=== PATIENT | male | born 1960 | race Two or more races ===

== ENCOUNTER 2019-05-29 15:55 | Inpatient (IN) | payer BC, OTHER ==
[~2019-05-29] VITALS: Ht 172.7 cm; Wt 126.8 kg
[~2019-05-29 15:55] MED LIST: AMLO5TAB4 PO; AMOX1TAB61 PO; ASPI-630 PO; ATOR40TA59 PO; FURO40TA4 PO; LOSA100T14 PO; OMEG1CAP6 PO
--- NOTE | 2019-05-29 16:06 | EKG ---
[address] [address] Test Date: 2019-05-29 Test Time: 15:58:35 Pat Name: ALTON SHUKLA Department: Room: Gender: M Document Management Specialist: : [id number] Requested By: RAJEEV LÓPEZ Order Number: [id number] Reading MD: Matias Man MD Measurements Intervals [place] Rate: 123 P: [place]: QRS: -76 QRSD: 110 T: 19 QT: 320 QTc: 464 Interpretive Statements ATRIAL FIBRILLATION WITH RVR RBBB Electronically Signed On 06-12-2019 12:39:40 CDT by Matias Man MD
[2019-05-29] MEDS ORDERED: ACETAMINOPHEN 500 MG TABLET PO ONE (16:15)
--- NOTE | 2019-05-29 16:15 | PHYS DOC ---
Past History Past Medical History: CVA, Diabetes, Heart Disease, Hypertension, Pancreatitis, Stroke Additional Past Medical Histor: atrial fibrillation (RAJEEV LÓPEZ MD) Past Surgical History: No Surgical History (RAJEEV LÓPEZ MD) Alcohol Use: None Drug Use: None (RAJEEV LÓPEZ MD) Adult General Chief Complaint Chief Complaint: WEAKNESS/GENERALIZED HPI HPI patient is a 59-year-old male who presents to the emergency department for evaluation, Via EMS. The patient states he lives with some friends, and EMS reports that the friends called the ambulance because they did not feel that he was acting right today. This behavior was noticed at about 9 AM this morning when the patient awakened. The patient appears to have an expressive aphasia, possibly related to an old stroke which he has a history of, but the patient states his speech is at his baseline. He denies any pain. He is noted to be fe brile upon arrival. He denies any cough, dysuria, abdominal pain, chest pain, nausea, vomiting, headache, new numbness, or new focal weakness. There are no alleviating or exacerbating factors to his symptoms. (RAJEEV LÓPEZ MD) Review of Systems Review of Systems Constitutional: Denies lethargy or chills [] Eyes: Denies change in visual acuity, redness, or eye pain [] HENT: Denies nasal congestion or sore throat [] Respiratory: Denies cough or shortness of breath [] Cardiovascular: No additional information not addressed in HPI [] GI: Denies abdominal pain, nausea, vomiting, bloody stools or diarrhea [] : Denies dysuria or hematuria [] Musculoskeletal: Denies back pain or joint pain [] Integument: Denies rash or skin lesions [] Neurologic: Denies headache, focal weakness or sensory changes. Generalized weakness and possibly behavioral changes were reported. [] Endocrine: Denies polyuria or polydipsia [] All other systems were reviewed and found to be within normal limits, except as documented in this note. (RAJEEV LÓPEZ MD) Current Medications Current Medications Current Medications Medications (Trade) Dose Ordered Sig/Ratna Start Time Stop Time Status Last Admin Dose Admin Acetaminophen (Tylenol) 1,000 mg 1X ONCE 05/29/19 16:15 05/29/19 16:16 UNV Ceftriaxone Sodium 1 gm/ Sodium Chloride 50 ml @ 100 mls/hr 1X ONCE 05/29/19 16:15 05/29/19 16:44 UNV Sodium Chloride 1,000 ml @ 100 mls/hr Q10H 05/29/19 16:02 05/30/19 02:01 UNV (RAJEEV LÓPEZ MD) Allergies Allergies Allergies Coded Allergies Type Severity Reaction Last Updated Verified No Known Drug Allergies 05/17/16 No (RAJEEV LÓPEZ MD) Physical Exam Physical Exam PHYSICAL EXAM: CONSTITUTIONAL: Well developed, well nourished HEAD: normocephalic, atraumatic EENT: PERRL, EOMI. Conjunctivae normal color, sclerae non-icteric; moist mucous membranes. NECK: Supple, non-tender; no meningismus. LUNGS: Lungs CTA, breathing even and unlabored. Normal air movement. HEART: Regular tachycardia, no murmur CHEST: No deformity; non-tender ABDOMEN: The abdomen is soft, and non-tender, no masses or bruits. EXTREM: Normal ROM; no deformity, no calf tenderness. Normal pulses palpable in all extremities. There is 1+ bilateral pedal edema, along with skin changes of chronic venous stasis, left greater than right legs. SKIN: No rash; no diaphoresis NEURO: Alert; normal cognition. There is some expressive aphasia, all the patient is able to reliably answer questions requiring 2-3 word answers; CN's grossly intact; strength grossly intact without focal deficit. BACK: No CVA TTP. (RAJEEV LÓPEZ MD) Current Patient Data Lab Results Laboratory Tests Test 05/29/19 16:45 White Blood Count 18.3 x10^3/uL Red Blood Count 5.26 x10^6/uL Hemoglobin 15.0 g/dL Hematocrit 46.2 % Mean Corpuscular Volume 88 fL Mean Corpuscular Hemoglobin 29 pg Mean Corpuscular Hemoglobin Concent 33 g/dL Red Cell Distribution Width 15.1 % Platelet Count 280 x10^3/uL Neutrophils (%) (Auto) 89 % Lymphocytes (%) (Auto) 5 % Monocytes (%) (Auto) 5 % Eosinophils (%) (Auto) 0 % Basophils (%) (Auto) 1 % Neutrophils # (Auto) 16.4 x10^3uL Lymphocytes # (Auto) 0.9 x10^3/uL Monocytes # (Auto) 0.9 x10^3/uL Eosinophils # (Auto) 0.0 x10^3/uL Basophils # (Auto) 0.2 x10^3/uL Platelet Estimate Pending Current Medications Medications (Trade) Dose Ordered Sig/Ratna Route PRN Reason Start Time Stop Time Status Last Admin Dose Admin Acetaminophen (Tylenol) 1,000 mg 1X ONCE PO 05/29/19 16:15 05/29/19 16:16 DC 05/29/19 16:57 Ceftriaxone Sodium 1 gm/ Sodium Chloride 50 ml @ 100 mls/hr 1X ONCE IV 05/29/19 16:15 05/29/19 16:44 DC 05/29/19 17:03 Sodium Chloride 1,000 ml @ 100 mls/hr Q10H IV 05/29/19 16:02 05/30/19 02:01 05/29/19 17:02 Sodium Chloride 50 ml @ As Directed STK-MED ONCE .ROUTE 05/29/19 16:55 05/29/19 16:56 DC Ceftriaxone Sodium (Rocephin) 1 gm STK-MED ONCE .ROUTE 05/29/19 16:55 05/29/19 16:56 DC (RAJEEV LÓPEZ MD) EKG EKG Irregular atrial fibrillation at a rate of 123 beats for minute, left axis deviation, right bundle-branch block, without acute ischemic ST/T changes. There are no old EKGs available for comparison.[] (RAJEEV LÓPEZ MD) Radiology/Procedures Radiology/Procedures [PROCEDURE: CT HEAD WO CONTRAST CT head without contrast dated 05/29/2019. No comparison available. Clinical data indication: Altered mental status. TECHNIQUE: Contiguous axial imaging the head was performed from skull base to vertex. No contrast administered. One or more of the following individualized dose reduction techniques were utilized for this examination: 1. Automated exposure control 2. Adjustment of the mA and/or kV according to patient size 3. Use of iterative reconstruction technique. FINDINGS: Ventricles and sulci are mildly prominent for age. No midline shift or mass effect. Mild patchy low density in the deep/subcortical periventricular white matter. No hemorrhage or extra axial collection. Focal zone of encephalomalacia and volume loss in the parasagittal right occipital lobe. There is also some spotty low density in the right cerebellum. Visualized paranasal sinuses are clear. There is partial opacification of the bilateral mastoid air cells. No acute calvarial abnormality. IMPRESSION: 1. No evidence of acute intracranial hemorrhage or mass. 2. Mild chronic small vessel ischemic changes and atrophy. There is a remote cortical infarct of the right occipital lobe. There are also probable small remote lacunar infarcts of the right cerebellum. 3. Partial opacification of the bilateral mastoid air cells, nonspecific.] PROCEDURE: PORTABLE CHEST 1V EXAM: Chest, single view. HISTORY: Fever. COMPARISON: None. FINDINGS: A frontal view of the chest is obtained. There is no infiltrate, pleural effusion or pneumothorax. There is a prominent cardiac silhouette, a component of which is due to portable technique. IMPRESSION: No acute pulmonary finding. (RAJEEV LÓPEZ MD) Course & Med Decision Making Course & Med Decision Making Pertinent Labs and Imaging studies reviewed. (See chart for details) []6:00 PM: Pt condition remains stable. Care was turned over to Dr Hernandez at shift change, pending labs, and final disposition. Report given. Initial chemistry results reported to be hemolyzed. (RAJEEV LÓPEZ MD) Course & Med Decision Making The patient's elevated white blood cell count. His lactic gases normal. Blood cultures have been old. He does have a fever of 101. He was given Tylenol. The patient appears to say lasted the left leg. He was given Rocephin by my colleague prior to turning over to me. The patient meets sepsis criteria with elevated heart rate, fever, altered mental status and likely source of infection. I will additionally given vancomycin and his 30 mL/kg of fluids for ideal body weight. We are using ideal body weight because the patient is rather obese and he has a pro BNP of 5700 indicating some fluid overload. His creatinine is 2.8. This appears to be similar to his baseline. I'm giving 40 mg Lasix IV for his fluid overload. I discussed the patient with Dr. Cornell and he has accepted the patient for admission. He was admitted to the ICU. He recommended that we hold the Lasix. I have canceled that order. The patient is in agreement with admission. Due to staffing issues of possible, the patient will be held in the emergency room until he can be admitted to the ICU. 43 minutes of critical care time was spent on this patient exclusive of other billable procedures. (ROSA HERNANDEZ DO) Dragon Disclaimer Dragon Disclaimer This electronic medical record was generated, in whole or in part, using a voice recognition dictation system. (RAJEEV LÓPEZ MD) Date and Time of Assessment Date: May 29, 2019 Time: 18:20 (ROSA HERNANDEZ DO) Respirations Respiratory Effort: Normal Respiratory Pattern: Normal (ROSA HERNANDEZ DO) Cardiovascular Pulse Rhythm: Regular HEART: No murmurs noted (ROSA HERNANDEZ DO) Lung Sounds Breath Sounds: Clear (ROSA HERNANDEZ DO) Capillary Refill Capillary Refill: Rt Hand < 3 seconds (ROSA HERNANDEZ DO) Peripheral Pulse Pulse Location: Monitor Pulse Strength: Normal (2+) Pulse Assessment Method: Monitor (ROSA HERNANDEZ DO) Integumentary Skin: Warm Skin Moisture: Dry Skin Turgor: Normal Skin Color: erythema Fingernail Color: WNL (ROSA HERNANDEZ DO) Fluid Challenge: Is the fluid challenge complet: No IBW Target Volume Used: No BMI > 30: Yes Blood Culture TIme: 16:45 Time Antibiotics Given: 17:00 (ROSA HERNANDEZ DO) Departure Departure: Impression: Primary Impression: Fever Additional Impressions: Altered mental status Cellulitis of left lower extremity Sepsis Disposition: ADMITTED INPATIENT Admitting Physician: Mike Cornell (RAJEEV LÓPEZ MD) Admitting Physician: Mike Cornell (ROSA HERNANDEZ DO) Condition: GUARDED Referrals: JOO GALLARDO MD (PCP) Problem Qualifiers Primary Impression: Fever Fever type: due to other condition Qualified Codes: R50.81 - Fever presenting with conditions classified elsewhere Additional Impressions: Altered mental status Altered mental status type: disorientation Qualified Codes: R41.0 - Disorientation, unspecified Sepsis Sepsis type: Streptococcus, unspecified Sepsis acute organ dysfunction status: without acute organ dysfunction Qualified Codes: A40.9 - Streptococcal sepsis, unspecified RAJEEV LÓPEZ MD May 29, 2019 16:15 ROSA HERNANDEZ DO May 29, 2019 19:20
--- NOTE | 2019-05-29 16:36 | RAD ---
EXAM: Chest, single view. HISTORY: Fever. COMPARISON: None. FINDINGS: A frontal view of the chest is obtained. There is no infiltrate, pleural effusion or pneumothorax. There is a prominent cardiac silhouette, a component of which is due to portable technique. IMPRESSION: No acute pulmonary finding. Electronically signed by: Rose Marie Britt MD (05/29/2019 4:33 PM) [facility]
--- NOTE | 2019-05-29 16:39 | RAD ---
CT head without contrast dated 05/29/2019. No comparison available. Clinical data indication: Altered mental status. TECHNIQUE: Contiguous axial imaging the head was performed from skull base to vertex. No contrast administered. One or more of the following individualized dose reduction techniques were utilized for this examination: 1. Automated exposure control 2. Adjustment of the mA and/or kV according to patient size 3. Use of iterative reconstruction technique. FINDINGS: Ventricles and sulci are mildly prominent for age. No midline shift or mass effect. Mild patchy low density in the deep/subcortical periventricular white matter. No hemorrhage or extra axial collection. Focal zone of encephalomalacia and volume loss in the parasagittal right occipital lobe. There is also some spotty low density in the right cerebellum. Visualized paranasal sinuses are clear. There is partial opacification of the bilateral mastoid air cells. No acute calvarial abnormality. IMPRESSION: 1. No evidence of acute intracranial hemorrhage or mass. 2. Mild chronic small vessel ischemic changes and atrophy. There is a remote cortical infarct of the right occipital lobe. There are also probable small remote lacunar infarcts of the right cerebellum. 3. Partial opacification of the bilateral mastoid air cells, nonspecific. Electronically signed by: Dayne Cohen MD (05/29/2019 4:36 PM) [facility]
[2019-05-29] MEDS ORDERED: IV NORMAL SALINE 50ML 50 ML ONE (16:55)
[2019-05-29] MEDS ORDERED: cefTRIAXone SODIUM 1 GM VIAL ONE (16:55)
[2019-05-29] MEDS: IV NORMAL SALINE 1,000ML 1,000 ML IV SCH ×2 (17:02→20:57)
[2019-05-29 17:35] LABS: BASO # 0.2 x10^3/uL (0.0-0.2); BASO % 1 % (0-3); EOS % 0 % (0-3); HEMATOCRIT 46.2 % (39.0-53.0); LYMPH # 0.9 x10^3/uL (1.0-4.8); LYMPH % 5 % (24-48); MEAN CORPUSCULAR HEMOGLOBIN 29 pg (25-35); MEAN CORPUSCULAR HGB CONC 33 g/dL (31-37); MEAN CORPUSCULAR VOLUME 88 fL (79-100); MONO # 0.9 x10^3/uL (0.0-1.1); MONO % 5 % (0-9); NEUT # 16.4 x10^3uL (1.8-7.7); NEUT % 89 % (31-73); PLATELET COUNT 280 x10^3/uL (140-400); RED BLOOD COUNT 5.26 x10^6/uL (4.30-5.70); RED CELL DISTRIBUTION WIDTH 15.1 % (11.5-14.5); WHITE BLOOD COUNT 18.3 x10^3/uL (4.0-11.0)
[2019-05-29 18:15] LABS: BILIRUBIN,URINE NEG (NEG); CLARITY,URINE HAZY; COLOR,URINE YELLOW; GLUCOSE,URINE 100 mg/dL (NEG)
[2019-05-29 18:16] LABS: BACTERIA,URINE 0 /HPF (0-FEW); HYALINE CASTS, URINE FEW /HPF; NITRITE,URINE NEG (NEG); SQUAMOUS EPITHELIAL CELL,UR MOD /LPF; UROBILINOGEN,URINE 0.2 mg/dL (0.2 mg/dL)
[2019-05-29 18:38] LABS: ALBUMIN 3.3 g/dL (3.4-5.0); ALBUMIN/GLOBULIN RATIO 0.8 (1.0-1.7); CALCIUM 8.1 mg/dL (8.5-10.1); CREATININE 2.8 mg/dL (0.7-1.3); GFR 23.3; MAGNESIUM 1.7 mg/dL (1.8-2.4); POTASSIUM 4.5 mmol/L (3.5-5.1); TOTAL BILIRUBIN 0.6 mg/dL (0.2-1.0); TOTAL PROTEIN 7.6 g/dL (6.4-8.2)
[2019-05-29 19:10] LABS: % BANDS 4 % (0-9); % LYMPHS 4 % (24-48); % MONOS 2 % (0-10); % SEGS 90 % (35-66)
[2019-05-29 19:11] LABS: PLT ESTIMATE ADEQUATE (ADEQUATE)
[2019-05-29] MEDS ORDERED: IV NORMAL SALINE 1,000ML 2,190 ML IV SCH (19:15)
[2019-05-29] MEDS ORDERED: VANCOMYCIN 2 GM in IV NORMAL SALINE 500ML 500 ML IV ONE (19:30)
[2019-05-29] MEDS ORDERED: FUROSEMIDE 40 MG/4 ML VIAL IVP ONE (19:30)
[2019-05-29 23:41] LABS: BGAS PH 7.37 (7.35-7.46)
[2019-05-30] MEDS ORDERED: WARFARIN 5 MG TABLET. PO ONE
[2019-05-30] MEDS ORDERED: CARVEDILOL 12.5 MG TABLET PO ONE (00:15)
[2019-05-30 07:51] VITALS: BP 135/97
[2019-05-30 08:26] LABS: BASO # 0.1 x10^3/uL (0.0-0.2); BASO % 1 % (0-3); EOS % 0 % (0-3); HEMATOCRIT 39.8 % (39.0-53.0); HEMOGLOBIN 12.9 g/dL (13.0-17.5); LYMPH % 9 % (24-48); MEAN CORPUSCULAR HEMOGLOBIN 28 pg (25-35); MEAN CORPUSCULAR HGB CONC 32 g/dL (31-37); MEAN CORPUSCULAR VOLUME 88 fL (79-100); MONO # 0.7 x10^3/uL (0.0-1.1); MONO % 7 % (0-9); NEUT # 9.5 x10^3uL (1.8-7.7); NEUT % 84 % (31-73); PLATELET COUNT 222 x10^3/uL (140-400); RED BLOOD COUNT 4.54 x10^6/uL (4.30-5.70); RED CELL DISTRIBUTION WIDTH 14.8 % (11.5-14.5); WHITE BLOOD COUNT 11.4 x10^3/uL (4.0-11.0)
[2019-05-30] MEDS ORDERED: ERGO500027 PO (08:43)
[2019-05-30] MEDS ORDERED: EZET10TA20 PO (08:43)
[2019-05-30] MEDS ORDERED: CARV25TA2 PO (08:43)
[2019-05-30 08:44] LABS: ALBUMIN 2.7 g/dL (3.4-5.0); ALBUMIN/GLOBULIN RATIO 0.7 (1.0-1.7); CALCIUM 7.6 mg/dL (8.5-10.1); CREATININE 2.6 mg/dL (0.7-1.3); GFR 25.4; MAGNESIUM 1.7 mg/dL (1.8-2.4); POTASSIUM 4.5 mmol/L (3.5-5.1); TOTAL BILIRUBIN 0.7 mg/dL (0.2-1.0); TOTAL PROTEIN 6.8 g/dL (6.4-8.2)
[2019-05-30] MEDS ORDERED: MAGNESIUM SULFATE 2GM 50 ML IV ONE (09:00)
[2019-05-30] MEDS: LISINOPRIL 10 MG TABLET PO SCH (09:00)
[2019-05-30] MEDS: NON FORMULARY ITEM (Liraglutide (Victoza 3-Pak) 1.2 MG) SQ SCH (09:00)
[2019-05-30] MEDS ORDERED: WARF-31 PO (09:05)
[2019-05-30] MEDS ORDERED: WARF2.5T71 PO (09:05)
[2019-05-30] MEDS ORDERED: MAGN400T5 PO (09:05)
[2019-05-30] MEDS ORDERED: LIRA0.6P2 SQ (09:05)
[2019-05-30] MEDS ORDERED: GLIP5TAB10 PO (09:05)
[2019-05-30] MEDS ORDERED: LISI10TA2 PO (09:05)
[2019-05-30 09:28] VITALS: BP 143/78
[2019-05-30 10:03] VITALS: BP 143/78
[2019-05-30] MEDS: MAGNESIUM OXIDE 400 MG TABLET PO SCH ×2 (10:04→21:11)
[2019-05-30] MEDS: OMEGA-3 FATTY ACIDS/FISH OIL 1,000 MG CAPSULE. PO SCH (10:04)
[2019-05-30] MEDS: glipiZIDE 5 MG TABLET PO SCH ×2 (10:04→21:11)
[2019-05-30] MEDS ORDERED: DEXTROSE 50% 25 GM / 50ML DISP.SYRIN. IV PRN (10:15)
[2019-05-30] MEDS: INSULIN LISPRO 300 UNITS/3 ML VIAL. SQ SCH ×2 (11:53→16:34)
[2019-05-30] MEDS: ACETAMINOPHEN 500 MG TABLET PO PRN ×2 (12:26→23:26)
[2019-05-30 15:09] VITALS: BP 111/65
[2019-05-30] MEDS ORDERED: WARFARIN 6 MG TABLET. PO ONE (16:00)
[2019-05-30 16:18] VITALS: BP 126/77
[2019-05-30] MEDS: CARVEDILOL 12.5 MG TABLET PO SCH (17:27)
[2019-05-30] MEDS ORDERED: VANCOMYCIN PER PHARMACY MC PRN (17:45)
[2019-05-30] MEDS ORDERED: VANCOMYCIN 2 GM in IV NORMAL SALINE 500ML 500 ML IV ONE (18:30)
[2019-05-30 18:32] VITALS: BP 133/78
[2019-05-30] MEDS ORDERED: VANCOMYCIN 2 GM in IV NORMAL SALINE 500ML 500 ML IV SCH ×2 (19:15→20:00)
[2019-05-30] MEDS: LACTOBACILLUS RHAMNOSUS GG 1 CAPSULE. PO SCH (21:11)
[2019-05-31 00:01] VITALS: BP 144/82
--- NOTE | 2019-05-31 02:59 | HP ---
ADMIT DATE: 05/30/2019 SUBJECTIVE: The patient is a 59-year-old male patient who came to the Emergency Room complaining of generalized weakness. He was brought to the Emergency Department for evaluation by EMS. The patient states that he lives with some friends, and reportedly, the friends called the ambulance because they did not feel that he was acting right today. This behavior was noticed at about 9:00 a.m. this morning when the patient awakened. He appears to have an expressive aphasia, possibly related to an old stroke which he has a history of, but the patient stated his speech is at baseline. He denied any pain. He is noted to be febrile upon arrival. He denies any cough, dysuria, abdominal pain, chest pain. He was apparently extensively investigated in the Emergency Room and has had lab work done, showed that he has leukocytosis with a white cell count of 13,000. His blood gases showed that he has hypoxic respiratory failure. Urinalysis was unremarkable. His chemistry showed that he has elevated BUN and creatinine. He apparently was given IV fluid and was started on IV vancomycin and ceftriaxone for left lower extremity cellulitis. PAST MEDICAL HISTORY: Significant for hypertension, hyperlipidemia, chronic kidney disease, type 2 diabetes mellitus, multiple cerebrovascular accident. Has also what seemed to be benign prostatic hypertrophy, chronic venous stasis and gout. PAST SURGICAL HISTORY: Significant for hernia repair. ALLERGIES: He has no known drug allergies. FAMILY HISTORY: He has 3 sisters, the older one has of end-stage renal failure in her 60s. He has 2 other sisters, one younger and older and seemingly healthy. His father in his 70s because of CVA and mother in her 70s. SOCIAL HISTORY: He is , has 2 daughters. He currently lives with 2 friends. He is an ex-smoker, quit 4 years ago, used to smoke a pack a day and smoked for almost 30 years, used to be also a heavy alcohol drinker, described himself as functional alcoholic, quit also about 4 years ago after he had first TIA. He does not use any drugs. He used to work for [email or web address]. He was discharged from the [employer] after 6 years of service. REVIEW OF SYSTEMS: The patient denied any blurring of vision, cataract, glaucoma or macular degeneration. Denied any earache, tinnitus or sensorineural deafness. Denied any nosebleeds, stuffy nose or postnasal drip. Denied any sore throat, sore tongue, toothache, hoarseness of voice or difficulty swallowing. Denied any nausea, vomiting, diarrhea or constipation. Denied any hematemesis, melena or hematochezia. Denied any dysuria, frequency or hematuria. Denied any chest pain, shortness of breath, orthopnea or paroxysmal nocturnal dyspnea. Denied any cough, phlegm or hemoptysis. Denied any dizziness, lightheadedness. Denied any chills, rigors or fever, although he realized his temperature was high at 100.1. PHYSICAL EXAMINATION: GENERAL: On arrival to the Emergency Room, he was somewhat pale. No jaundice, cyanosis or thyromegaly. No jugular venous distention. No limb edema. VITAL SIGNS: His heart rate was 115, blood pressure was 161/91, temperature was 98.9, respiratory rate was 22 and oxygen saturation was 94%. HEAD, EYES, EARS, NOSE AND THROAT: Normocephalic, atraumatic. NECK: Supple. HEART: Showed normal first and second heart sounds. No gallop, rub or murmur. CHEST: Clear to auscultation. No crepitation or rhonchi. ABDOMEN: Distended, soft, nontender. No guarding or rigidity. No organomegaly. All hernial orifice intact. Bowel sounds normal. NEUROLOGIC: He was awake, alert, responding appropriately. All cranial nerves are intact. He moves extremities without difficulty. At least when he was seen here in the hospital, he was able to ambulate without any assistance or assistive devices. LABORATORY DATA: His lab work on arrival this morning showed a serum sodium 138, potassium 4.5, chloride 106, bicarbonate 22, anion gap of 10, BUN 39, creatinine 2.8, estimated GFR was 23 mL per minute, his glucose 152, calcium was 8.1, magnesium 1.7. Total bilirubin, AST, ALT, alkaline phosphatase were normal. Beta natriuretic peptide was 5917, total protein was 7.6, albumin 3.3. His white cell count was 18,300, hemoglobin 15, hematocrit 46, MCV 88 and platelet count of 208,000. His arterial blood gases showed a pH of 7.37, pCO2 of 32, pO2 of 75, bicarbonate 19 and oxygen saturation was 95% on FiO2 of 21%. His prothrombin time was 22 with INR of 2.1, aPTT was 35. Urinalysis showed the urine was yellow, hazy with a pH of 5.5, specific gravity of 1.020 and the urine showed more than 100 mg/dL protein. There was large amount of glucose. The urine was negative for ketones, moderate amount of blood, negative for nitrite, negative for leukocyte esterase. There were 6-10 rbc's, 1-4 wbc's and no bacteria. His chest x-ray showed there is a prominent cardiac silhouette, component of which is due to portable technique. There is no infiltrate, pleural effusion or pneumothorax. His CT scan of the head showed that there is no evidence of acute intracranial hemorrhage or mass effect. There are mild chronic small vessel ischemic changes and atrophy. There is a remote cortical infarct of the right occipital lobe. There is also probable remote lacunar infarct in the right cerebellum. There is partial opacification of bilateral mastoid air cells, nonspecific. He was admitted after receiving IV fluid and vancomycin as well as ceftriaxone. He is currently on Coumadin 5 mg on Mondays and 2.5 mg in the rest of the week. He is on Zetia 10 mg daily, atorvastatin calcium 20 mg once a day, omega-3 fatty acid 1000 mg daily, carvedilol 12.5 mg twice a day with meals, lisinopril 10 mg once a day, furosemide 40 mg once a day, magnesium oxide 400 mg twice a day, Victoza 1.2 mg subQ daily, glipizide 7.5 mg twice a day, ergocalciferol, vitamin D 50,000 International Units once a week. We will continue with all his medications, vancomycin and ceftriaxone, and monitor his lab work closely. DAVIDA MAYERS MD DR: LORENZO/tomy JOB#: [id number] / [id number]
[2019-05-31 06:00] VITALS: BP 115/83
[2019-05-31 06:17] LABS: HEMATOCRIT 40.1 % (39.0-53.0); RED BLOOD COUNT 4.51 x10^6/uL (4.30-5.70); RED CELL DISTRIBUTION WIDTH 15.5 % (11.5-14.5); WHITE BLOOD COUNT 9.1 x10^3/uL (4.0-11.0)
[2019-05-31 06:33] LABS: ALBUMIN 2.7 g/dL (3.4-5.0); ALBUMIN/GLOBULIN RATIO 0.6 (1.0-1.7); CREATININE 2.8 mg/dL (0.7-1.3); GFR 23.3; POTASSIUM 4.5 mmol/L (3.5-5.1); TOTAL BILIRUBIN 0.4 mg/dL (0.2-1.0); TOTAL PROTEIN 6.9 g/dL (6.4-8.2)
[2019-05-31] MEDS: INSULIN LISPRO 300 UNITS/3 ML VIAL. SQ SCH ×3 (07:29→16:47)
[2019-05-31] MEDS: MAGNESIUM OXIDE 400 MG TABLET PO SCH (08:13)
[2019-05-31] MEDS: OMEGA-3 FATTY ACIDS/FISH OIL 1,000 MG CAPSULE. PO SCH (08:13)
[2019-05-31] MEDS: LACTOBACILLUS RHAMNOSUS GG 1 CAPSULE. PO SCH (08:13)
[2019-05-31] MEDS: LISINOPRIL 10 MG TABLET PO SCH (08:14)
[2019-05-31] MEDS: glipiZIDE 5 MG TABLET PO SCH (08:14)
[2019-05-31] MEDS: CARVEDILOL 12.5 MG TABLET PO SCH ×2 (08:15→16:37)
[2019-05-31] MEDS: NON FORMULARY ITEM (Liraglutide (Victoza 3-Pak) 1.2 MG) SQ SCH (08:18)
[2019-05-31] MEDS ORDERED: FLU VAX QS 2019-20 (36MOS+)/PF 0.5 ML SYRINGE. VAX IM ONE (09:00)
[2019-05-31] MEDS ORDERED: MINERAL OIL/PETROLATUM TOPICAL CREAM 113GM JAR. TP SCH (10:00)
[2019-05-31 10:27] VITALS: BP 145/81
--- NOTE | 2019-05-31 12:46 | RAD ---
Examination: VENOUS LOWER EXTREMITY LEFT History: Left leg edema. Swelling. COMPARISON/CORRELATION: None FINDINGS: Bilateral lower extremity duplex venous ultrasound exam was performed. Grayscale, color Doppler, and spectral Doppler imaging was performed. Compression and augmentation was performed. The left common femoral vein, superficial femoral vein, popliteal vein, and greater saphenous vein are normal with no evidence of deep venous thrombus. Posterior tibial and peroneal veins are visualized and unremarkable. Normal compressibility and augmentation is evident. IMPRESSION: Normal left lower extremity duplex ultrasound exam. No evidence of deep venous thrombus involving the left lower extremity. Electronically signed by: Jose Doll MD (05/31/2019 12:43 PM) [facility]
[2019-05-31 15:31] VITALS: BP 146/82
[2019-05-31] MEDS ORDERED: CEPH-264 PO (15:43)
[2019-05-31] MEDS ORDERED: CEPHALEXIN 250 MG CAPSULE PO SCH (16:00)
[2019-05-31] MEDS ORDERED: WARFARIN 2.5 MG TABLET. PO ONE (16:00)
[2019-05-31 16:37] VITALS: BP 146/82
--- NOTE | 2019-05-31 17:44 | CONS ---
DATE OF CONSULTATION: 05/30/2019 NEURO CONSULTATION REFERRING PHYSICIAN: Dr. Cornell/Dr. Luevano. REASON FOR CONSULTATION: Mental status changes, rule out stroke versus TIA. HISTORY OF PRESENT ILLNESS: This is a 59-year-old right-handed male who was admitted through Emergency Room after he was found by his friend not acting normally According to the patient upon waking up at 9 o'clock, he was acting strangely for a few minutes. Subsequently, EMS was activated and transferred the patient to Emergency Room for further evaluation. On arrival to Emergency Room, the patient was found alert and oriented, but he has to take long time to answer the questions. It was thought that he might have aphasia; however, it was thought that he might have had expressive aphasia. Currently, the patient denies any headaches, visual disturbances, nausea, vomiting, chest pain, shortness of breath or palpitation, dysphagia or vertigo. He had a stroke in the past resulted in visual field abnormalities. PAST MEDICAL HISTORY: Significant for stroke, hypertension, hyperlipidemia, peripheral vascular disease, coronary artery disease, chronic renal disease, diabetes and atrial fibrillation. SOCIAL HISTORY: The patient is . He is a smoker. He denies alcohol drinking or illicit drug use. FAMILY HISTORY: Noncontributory. CURRENT HOME MEDICATIONS: Tylenol, carvedilol, fish oil, glipizide, insulin Humalog, lisinopril, magnesium, vitamin D, and warfarin. ALLERGIES: No known drug allergies. REVIEW OF SYSTEMS: A 10-point review of system was performed as mentioned above in history of present illness. PHYSICAL EXAMINATION: GENERAL: Obese male, not in acute distress. He weighs 127 kilos. VITAL SIGNS: Blood pressure 135/97, respiratory rate 27, pulse is 88 and regular, oxygen saturation 99% on 3 liters by nasal cannula and temperature is 98.5. HEENT: Normocephalic, atraumatic, otherwise unremarkable. NECK: Supple. Negative for carotid bruit, lymphadenopathy or thyromegaly. LUNGS: Clear to A and P. CARDIOVASCULAR: Regular rhythm, normal S1, S2. ABDOMEN: Soft. Bowel sounds positive. EXTREMITIES: Positive for bilateral venous stasis with possible cellulitis over the left knee and left leg associated with edema. NEUROLOGICAL EXAM: Mental Status: The patient is alert and oriented x 3. Speech is fluent. There is no language dysfunction. The patient recalls 2/3 immediately and after 1 and 3 minutes. Judgment and abstracting thinking are normal. The patient denies hallucination or delusion. CRANIAL NERVES: The pupils are equal and reactive to light and accommodation. The extraocular movements are intact. Visual leal revealed evidence of left homonymous hemianopsia. There is no nystagmus. There is no facial motor or sensory deficit. Hearing is diminished bilaterally. The palate is elevated symmetrically. Sternocleidomastoid muscles are powerful bilaterally. The patient shrugs his shoulders symmetrically, protrudes his tongue in the midline without fasciculation or atrophy. MOTOR: No focal muscle bulk was seen. The tone is normal. The strength is 5/5 throughout. Sensory examination revealed diminished pinprick and light touch senses in patchy distributions in both lower extremities. Deep tendon reflexes were symmetric, but hypoactive with absent Achilles responses. Gait: The gait is normal. LABORATORY DATA: CBC revealed white blood cells of 11.4 thousand from 18.3 thousand at the time of admission. On admission, hemoglobin is 12.9, hematocrit 39.8, platelet count 222,000. Chemistry revealed sodium of 138, potassium 4.5, chloride 107, CO2 of 22, BUN 34, creatinine 2.6, glucose 163 and, calcium 7.6. Magnesium is low at 1.7. Liver enzymes with not elevated. Urinalysis positive for hematuria and negative for urinary tract infections. Coagulation revealed INR 1.7 and PT 17.2. EKG revealed right bundle branch block with atrial fibrillation. IMPRESSION: 1. Acute encephalopathy, resolved, rule out transient ischemic attack. 2. Multiple medical problems include hypertension, hyperlipidemia and diabetes mellitus. 3. Coronary artery disease, atrial fibrillation and peripheral vascular disease with possible cellulitis of the left knee and leg. RECOMMENDATIONS: 1. The patient has been on antibiotics for possible cellulitis. 2. This patient belongs to the [facility] here in [place]. If he is going to stay in the hospital, we need to obtain medical record from [facility]. 3. Physical therapy evaluation. M Brianne BRAGG MD DR: RAVINDER/tomy JOB#: [id number] / [id number]
[2019-05-31] MEDS ORDERED: CEPHALEXIN 250 MG/5 ML ORAL.SUSP. PEG SCH (22:00)
--- NOTE | 2019-06-01 01:37 | DS ---
DATE OF DISCHARGE: 05/31/2019 HOSPITAL COURSE: The patient is a 59-year-old male patient who was admitted with complaint of generalized weakness. He was originally admitted because of possibility of stroke and expressive aphasia and unsteady gait; however, when he arrived to the Emergency Room, he was found to be febrile; however, denied any cough, phlegm, dysuria, abdominal pain, chest pain. He was extensively investigated in the Emergency Room, was found to have marked leukocytosis with a white cell count of more than 18,000. His urinalysis was unremarkable, did have marked elevated BUN and creatinine and clinically was found to have a left lower extremity cellulitis, which he was started on vancomycin and ceftriaxone. The patient did well. He remained afebrile throughout his stay. His white cell count came down nicely from 18,000 to 9000, although he continued to have mild tenderness in his left leg. Venous Doppler ultrasound showed no evidence of deep vein thrombosis and decision was made in collaboration with the [facility] to discharge him home to follow with the [facility] at the [facility]. PHYSICAL EXAMINATION: GENERAL: When I examined him this afternoon, he looked well and was clearly in no apparent respiratory distress. He was pale. No jaundice, cyanosis or thyromegaly. No jugular venous distention or limb edema. VITAL SIGNS: His heart rate was 88, blood pressure was 133/78, temperature was 98.5, respiratory rate 23, and oxygen saturation was 96%. HEAD, EYES, EARS, NOSE AND THROAT: Showed normocephalic, atraumatic. NECK: Supple. HEART: Showed normal first and second heart sounds. No gallop or murmur. CHEST: Clear to auscultation. No crepitation, rhonchi. ABDOMEN: Distended, soft, nontender. NEUROLOGIC: He was awake, alert, responding appropriately. All cranial nerves are intact. He moves extremities without difficulty. The left leg is more swollen than right with some tenderness to palpation noted. The patient denies any pain on movement. There are no areas of fluctuation. His venous Doppler ultrasound was negative for deep vein thrombosis. LABORATORY WORK: This morning showed a white cell count is down to 9000, hemoglobin 13, hematocrit 40, MCV 89 and platelet count 209,000. His chemistry showed a serum sodium 141, potassium 4.5, chloride 109, bicarbonate ____, BUN 37, creatinine 2.8, estimated GFR was 23 mL per minute, his glucose 122, calcium was 8. Total bilirubin, AST, ALT, alkaline phosphatase were normal. Total protein 6.9, albumin 2.7. Urinalysis was unremarkable and his blood cultures were negative. DISCHARGE MEDICATIONS: The patient was discharged home to continue on Keflex 500 mg 3 times a day, atorvastatin calcium 20 mg at bedtime, carvedilol 12.5 mg twice a day, vitamin D2 50,000 International Units once a week, Zetia 10 mg once a day, furosemide 40 mg once a day, glipizide 7.5 mg twice a day, liraglutide for Victoza 1.2 mg subcutaneously daily, lisinopril 10 mg once a day, magnesium oxide 400 mg twice a day, omega-3 fatty acid 1 capsule daily and warfarin 7.5 mg daily. FINAL DISCHARGE DIAGNOSIS: Left lower extremity cellulitis, responding to antibiotic. OTHER MEDICAL PROBLEMS: Include: A. Hypertension. B. Hyperlipidemia. C. Chronic kidney disease. D. Type 2 diabetes mellitus. E. Multiple cerebrovascular accidents. F. Benign prostatic hypertrophy. G. Chronic venous stasis. H. Gout. DAVIDA MAYERS MD DR: LORENZO/tomy JOB#: [id number] / [id number]
--- NOTE | 2019-06-01 03:46 | PN ---
DATE: 05/31/2019 SUBJECTIVE: The patient denies any new medical or neurological complaints. He denies pain on protraction; however, the patient has more swelling. OBJECTIVE: GENERAL: Obese male, not in acute distress. VITAL SIGNS: Blood pressure 150/83, respiratory rate 20, pulse is 76, oxygen saturation 98% on 3 liters by nasal cannula and temperature 97.2. HEENT: Normocephalic, atraumatic, otherwise unremarkable. NECK: Supple. Negative for carotid bruit, lymphadenopathy or thyromegaly. LUNGS: Clear to A and P. CARDIOVASCULAR: Regular rhythm, normal S1, S2. There is no S3, S4 or murmur. ABDOMEN: Soft. Bowel sounds positive. EXTREMITIES: Positive for bilateral venous stasis with swelling of the left calf, left leg with some signs of cellulitis. NEUROLOGICAL EXAM: Mental Status: The patient is alert and oriented x 2. The speech is fluent. There is no language dysfunction. Cranial nerves are intact except for bilateral hearing loss. Motor Examination: No focal muscle bulk was seen. The tone is normal. The strength is 5/5 throughout. Sensory examination revealed diminished pinprick and light touch senses in patchy distributions in distal lower extremities. Deep tendon reflexes were asymmetric and hypoactive with absent Achilles responses. Gait is normal. LABORATORY DATA: CBC revealed white blood cells of 9100, hemoglobin 13, hematocrit 40, platelet count 209. Chemistry revealed sodium of 141, potassium 4.5, chloride 109, CO2 24, BUN 37, creatinine 2.8, glucose 122, calcium 8. PT is 21.6, INR 2.1. IMPRESSION: 1. Acute encephalopathy ? resolved, of uncertain etiology. 2. Cellulitis of the left lower extremity. 3. Multiple medical problems include coronary artery disease, atrial fibrillations, hyperlipidemia, hypertension, obstructive sleep apnea and diabetes mellitus. 4. Chronic kidney disease. RECOMMENDATIONS: Continue with current management for cellulitis and other home medications. M Brianne BRAGG MD DR: RAVINDER/tomy JOB#: [id number] / [id number]
[2019-06-06] MEDS ORDERED: CHOLECALCIFEROL (VITAMIN D3) 50,000 UNIT CAPSULE PO SCH (09:00)
== END 2019-05-31 17:00 | disposition home or self-care (01) | DRG 602 ==
LOC: ER 15:55 → ICU 05-30 05:02
PROVIDERS: ADMIT Internal Medicine; ATTEND Internal Medicine
DX: L03.116 Cellulitis of left lower limb (principal); I50.31 Acute diastolic (congestive) heart failure; E43 Unspecified severe protein-calorie malnutrition; G93.40 Encephalopathy, unspecified; Z68.41 Body mass index [BMI] 40.0-44.9, adult; R47.01 Aphasia; I48.91 Unspecified atrial fibrillation; E11.22 Type 2 diabetes mellitus with diabetic chronic kidney disease; E78.5 Hyperlipidemia, unspecified; E11.51 Type 2 diabetes mellitus with diabetic peripheral angiopathy without gangrene; I12.9 Hypertensive chronic kidney disease with stage 1 through stage 4 chronic kidney disease, or unspecified chronic kidney disease; N40.0 Benign prostatic hyperplasia without lower urinary tract symptoms; M10.9 Gout, unspecified; I87.8 Other specified disorders of veins; F17.200 Nicotine dependence, unspecified, uncomplicated; E66.9 Obesity, unspecified; I25.10 Atherosclerotic heart disease of native coronary artery without angina pectoris; N18.9 Chronic kidney disease, unspecified; G47.33 Obstructive sleep apnea (adult) (pediatric); Z86.73 Personal history of transient ischemic attack (TIA), and cerebral infarction without residual deficits; Z82.3 Family history of stroke
CPT/HCPCS: 36415; 70450; 71045; 80053; 81001; 82803; 82947; 83605; 83735; 83880; 85007; 85025; 85027; 85610; 85730; 87040; 90471; 90686; 93005; 93971; 96365; 96366; 96367; J0696; J1815; J3370; J3475; J7040; 97530; 99291-25; J7030

== ENCOUNTER 2019-06-24 01:47 | Emergency (ER) | payer OTHER ==
[~2019-06-24] VITALS: Ht 172.7 cm; Wt 129.4 kg
[~2019-06-24 01:47] MED LIST changes: +CARV25TA2 PO; +CEPH-264 PO; +ERGO500027 PO; +EZET10TA20 PO; +GLIP5TAB10 PO; +LIRA0.6P2 SQ; +LISI10TA2 PO; +MAGN400T5 PO; +WARF-31 PO; +WARF2.5T71 PO
--- NOTE | 2019-06-24 02:10 | PHYS DOC ---
Past History Past Medical History: A-Fib, CVA, Diabetes, Heart Disease, Hypertension, Pancreatitis, Stroke Additional Past Medical Histor: atrial fibrillation, chronic kidney disease, gout Past Medical History Decreased vision in right eye since CVA in 2012 Past Surgical History: No Surgical History Smoking: Quit Greater Than 1 Year Alcohol Use: None Drug Use: None Adult General Chief Complaint Chief Complaint: BLURRED/DOUBLE VISION HPI HPI Patient is a 59-year-old male presents with double vision, similar to when he had previous TIA. This started approximately 2 hours ago. Reports that what he is seeing is not lining up left to right. Also reports a headache behind his eyes and seeing floaters out of the corner of his vision bilaterally. No photophobia. No nausea or vomiting. He reports that the symptoms got better when he stood up but they seem to be coming back. He denies any trauma. He is c urrently on Coumadin for history of atrial fibrillation. He is also treated for diabetes and high blood pressure.[] Review of Systems Review of Systems Constitutional: Denies fever or chills [] Eyes: Denies change in visual acuity, redness, or eye pain, see history of present illness [] HENT: Denies nasal congestion or sore throat [] Respiratory: Denies cough or shortness of breath [] Cardiovascular: No chest pain or palpitations[] GI: Denies abdominal pain, nausea, vomiting, bloody stools or diarrhea [] : Denies dysuria or hematuria [] Musculoskeletal: Denies back pain or joint pain [] Integument: Denies rash or skin lesions [] Neurologic: Denies focal weakness or sensory changes, see history of present illness [] Endocrine: Denies polyuria or polydipsia [] All other systems were reviewed and found to be within normal limits, except as documented in this note. Allergies Allergies Allergies Coded Allergies Type Severity Reaction Last Updated Verified No Known Drug Allergies 05/17/16 No Physical Exam Physical Exam Constitutional: Well developed, well nourished, no acute distress, non-toxic appearance. [] HENT: Normocephalic, atraumatic, bilateral external ears normal, oropharynx moist, no oral exudates, nose normal. [] Eyes: PERRLA, EOMI, conjunctiva normal, no discharge. Normal fundi bilaterally[] Neck: Normal range of motion, no tenderness, supple, no stridor. [] Cardiovascular:Heart rate is in the normal range with an irregularly irregular rhythm, no murmur [] Lungs & Thorax: Bilateral breath sounds clear to auscultation [] Abdomen: Bowel sounds normal, soft, no tenderness, no masses, no pulsatile masses. [] Skin: Warm, dry, no erythema, stasis changes bilateral lower extremities. [] Back: No tenderness, no CVA tenderness. [] Extremities: No tenderness, no cyanosis, no clubbing, ROM intact, 1+ pretibial edema bilaterally along with the skins stasis changes noted above. [] Neurologic: Alert and oriented X 3, normal motor function, normal sensory function, no focal deficits noted. [] Psychologic: Affect normal, judgement normal, mood normal. [] EKG EKG EKG shows an irregularly irregular rhythm consistent with atrial fibrillation, left axis, QTC of 472 ms, no ST elevation. TURP or did by me at 0219[] Radiology/Procedures Radiology/Procedures Chest PA single view: Reason for examination: Diplopia. History of CVA and TIA. Hypertension. The heart size is normal. Mediastinum is unremarkable. Lung leal are clear. No acute bony abnormalities are seen. Impression: No acute cardiopulmonary disease. CT head without contrast: Comparison is made to previous study dated 05/29/2019. Helical images were obtained through the brain with no contrast administered. Reconstruction was performed in sagittal and coronal planes. Exposure: One or more of the following individualized dose reduction techniques were utilized for this examination: 1. Automated exposure control 2. Adjustment of the mA and/or kV according to patient size 3. Use of iterative reconstruction technique. Ventricular systems are prominent but symmetric consistent with some generalized cerebral atrophy no midline shift is seen. There is no evidence of intracranial hemorrhage. There is a chronic infarct in the right occipital lobe. No acute infarct, mass or edema is seen. No abnormalities of seen at the orbits. The paranasal sinuses are clear and the right mastoid air cells are clear. There is some chronic opacification in the left mastoid air cells which may reflect some mastoiditis. IMPRESSION: Chronic infarct in the right occipital lobe. Generalized cerebral atrophy. No acute intracranial abnormality seen. Chronic opacification of the left mastoid air cells.[] Course & Med Decision Making Course & Med Decision Making Pertinent Labs and Imaging studies reviewed. (See chart for details) ED course: Patient arrived, was placed in bed, and tolerated exam well. He was transported to and from radiology with any complications. After the return of the laboratory and imaging findings, these were discussed with the patient. He reported that his double vision had resolved. Was noted that his blood pressure was elevated when he initially arrived, without any intervention for his blood pressure did improve to the 140s systolic. Consultation was made with the hospitalist service for admission. They graciously accepted for [place] given the greater resources, specifically MRI capability, not available at [facility]. Findings and plan were discussed with the patient who voiced understanding. All questions were answered. He was transferred in improved condition Medical decision makin-year-old male with history of previous CVA and TIAs, concerned about recurrence, also concerned about possibility of this being related to his blood pressure versus his poor compliance on ADA diet guidelines since patient related how he has been eating danishes with his coffee. [] Dragon Disclaimer Dragon Disclaimer This electronic medical record was generated, in whole or in part, using a voice recognition dictation system. Departure Departure: Impression: Primary Impression: Diplopia Additional Impressions: TIA (transient ischemic attack) Poorly-controlled hypertension Diabetes mellitus Disposition: 05 TRANSFER OTHER Admitting Physician: Mike Cornell Condition: IMPROVED Referrals: PCP,ADRIAN (PCP) NIHSS - ED NIH Stroke Scale: NIH Stroke Scale Response (Comments) Value Level of Consciousness: 0 Alert/Responsive 0 LOC Questions: 0 Answers both correctly 0 LOC Commands: 0 Performs both tasks 0 Best Gaze: 0 Normal 0 Visual: 1 Partial hemianopia 1 Facial Palsy: 0 Normal, symmetrical 0 Motor - Left Arm 0 No drift 0 Motor - Right Arm 0 No drift 0 Motor - Left Leg 0 No drift 0 Motor: Right Leg 0 No drift 0 Limb Ataxia: 0 Absent 0 Sensory: 0 No loss 0 Best Language: 0 Normal 0 Dysathria: 0 Normal 0 Extinction and Inattention: 0 Normal 0 Total 1 Problem Qualifiers Additional Impressions: Diabetes mellitus Diabetes mellitus type: type 2 Diabetes mellitus termite treater helper insulin use: unspecified jail insulin use status Diabetes mellitus complication status: with ophthalmic complications Diabetes mellitus complication detail: with other ophthalmic complication Qualified Codes: 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
--- NOTE | 2019-06-24 02:20 | EKG ---
[address] [address] Test Date: 2019-06-24 Test Time: 02:15:32 Pat Name: ALTON SHUKLA Department: Room: Gender: M Director [employer]: CONNOR : 1960 Requested By: MARC BERGER Order Number: [id number] Reading MD: Measurements Intervals [place] Rate: 91 P: NH: QRS: -36 QRSD: 90 T: 71 QT: 382 QTc: 472 Interpretive Statements IRREGULAR RHYTHM, NO P-WAVE FOUND ABNORMAL LEFT AXIS DEVIATION R-S TRANSITION ZONE IN V LEADS DISPLACED TO THE LEFT LEFT ANTERIOR FASCICULAR BLOCK T ABNORMALITY IN HIGH LATERAL LEADS PROLONGED QT ABNORMAL ECG RI6.01 Compared to ECG 05/29/2019 15:58:35 Left-axis deviation now present Left anterior fascicular block now present T-wave abnormality now present Prolonged QT interval now present Atrial fibrillation no longer present Right bundle-branch block no longer present
[2019-06-24 02:39] LABS: BASO % 1 % (0-3); EOS # 0.3 x10^3/uL (0.0-0.7); EOS % 4 % (0-3); HEMATOCRIT 40.9 % (39.0-53.0); HEMOGLOBIN 13.4 g/dL (13.0-17.5); LYMPH # 1.7 x10^3/uL (1.0-4.8); LYMPH % 22 % (24-48); MEAN CORPUSCULAR HEMOGLOBIN 29 pg (25-35); MEAN CORPUSCULAR HGB CONC 33 g/dL (31-37); MEAN CORPUSCULAR VOLUME 87 fL (79-100); MONO # 0.7 x10^3/uL (0.0-1.1); MONO % 9 % (0-9); NEUT % 65 % (31-73); PLATELET COUNT 235 x10^3/uL (140-400); RED BLOOD COUNT 4.71 x10^6/uL (4.30-5.70); RED CELL DISTRIBUTION WIDTH 15.4 % (11.5-14.5); WHITE BLOOD COUNT 7.7 x10^3/uL (4.0-11.0)
[2019-06-24 02:48] LABS: BILIRUBIN,URINE NEG (NEG); CLARITY,URINE CLEAR; COLOR,URINE YELLOW; GLUCOSE,URINE 500 mg/dL (NEG)
[2019-06-24 02:49] LABS: BACTERIA,URINE FEW /HPF (0-FEW); BARBITURATES NEG (NEG); BENZODIAZEPINES NEG (NEG); CANNABINOIDS NEG (NEG); COCAINE NEG (NEG); METHADONE NEG (NEG); NITRITE,URINE NEG (NEG); OPIATES NEG (NEG); PHENCYCLIDINE NEG (NEG); SQUAMOUS EPITHELIAL CELL,UR OCC /LPF; UROBILINOGEN,URINE 0.2 mg/dL (0.2 mg/dL); WBC,URINE 0 /HPF (0-4)
[2019-06-24 02:51] LABS: ALBUMIN 3.3 g/dL (3.4-5.0); ALBUMIN/GLOBULIN RATIO 0.7 (1.0-1.7); CALCIUM 8.4 mg/dL (8.5-10.1); CREATININE 2.7 mg/dL (0.7-1.3); GFR 24.3; POTASSIUM 4.3 mmol/L (3.5-5.1); TOTAL BILIRUBIN 0.4 mg/dL (0.2-1.0); TOTAL PROTEIN 8.1 g/dL (6.4-8.2)
[2019-06-24 02:53] LABS: AMPHETAMINE/METHAMPHETAMINE NEG (NEG)
--- NOTE | 2019-06-24 02:53 | RAD ---
Chest PA single view: Reason for examination: Diplopia. History of CVA and TIA. Hypertension. The heart size is normal. Mediastinum is unremarkable. Lung leal are clear. No acute bony abnormalities are seen. Impression: No acute cardiopulmonary disease. CT head without contrast: Comparison is made to previous study dated 05/29/2019. Helical images were obtained through the brain with no contrast administered. Reconstruction was performed in sagittal and coronal planes. Exposure: One or more of the following individualized dose reduction techniques were utilized for this examination: 1. Automated exposure control 2. Adjustment of the mA and/or kV according to patient size 3. Use of iterative reconstruction technique. Ventricular systems are prominent but symmetric consistent with some generalized cerebral atrophy no midline shift is seen. There is no evidence of intracranial hemorrhage. There is a chronic infarct in the right occipital lobe. No acute infarct, mass or edema is seen. No abnormalities of seen at the orbits. The paranasal sinuses are clear and the right mastoid air cells are clear. There is some chronic opacification in the left mastoid air cells which may reflect some mastoiditis. IMPRESSION: Chronic infarct in the right occipital lobe. Generalized cerebral atrophy. No acute intracranial abnormality seen. Chronic opacification of the left mastoid air cells. Electronically signed by: Isa Conti MD (06/24/2019 2:50 AM) [facility]
[2019-06-24] MEDS ORDERED: ACETAMINOPHEN 325 MG TABLET PO ONE (03:45)
[2019-06-24 04:10] VITALS: BP 169/101
== END 2019-06-24 04:15 | disposition short-term general hospital (02) ==
LOC: ER 01:47
DX: E11.39 Type 2 diabetes mellitus with other diabetic ophthalmic complication (principal); H53.2 Diplopia; G45.9 Transient cerebral ischemic attack, unspecified; I48.91 Unspecified atrial fibrillation; E11.22 Type 2 diabetes mellitus with diabetic chronic kidney disease; I13.10 Hypertensive heart and chronic kidney disease without heart failure, with stage 1 through stage 4 chronic kidney disease, or unspecified chronic kidney disease; N18.9 Chronic kidney disease, unspecified; Z86.73 Personal history of transient ischemic attack (TIA), and cerebral infarction without residual deficits
CPT/HCPCS: 36415; 70450; 71045; 80053; 80307; 81001; 82947; 83735; 83880; 84484; 85025; 85610; 85730; 93005; 99285-25

== ENCOUNTER 2021-03-24 14:21 | Emergency (ER) | payer OTHER ==
[~2021-03-24] VITALS: Ht 172.7 cm; Wt 134.3 kg
[~2021-03-24 14:21] MED LIST changes: +LISI10TA16 PO; -LISI10TA2 PO
--- NOTE | 2021-03-24 15:33 | RAD ---
US TESTICULAR: 03/24/2021 2:51 PM INDICATION: 61 years old Male. Swelling with possible torsion. COMPARISON: None. FINDINGS: Right: Testicle: Normal in echotexture without focal lesion. Extensive scrotal edema. Size: 5.5 x 3.2 x 3.6 cm. Flow: Normal color Doppler flow pattern. Epididymis: Normal in size and echotexture without focal lesion. Hydrocele: Moderate Varicocele: None. Left: Testicle: Normal in echotexture without focal lesion. Extensive scrotal edema. Size: 2.9 x 2.8 x 2.1 cm. Flow: Normal color Doppler flow pattern. Epididymis: Normal in size and echotexture without focal lesion. Hydrocele: Moderate Varicocele: None. IMPRESSION: Extensive scrotal edema with perfusion noted to the testicles at the time of imaging. There is asymmetry in the size of the testicles with right greater than left, nonspecific. No definit e intratesticular mass to account for this difference. Electronically signed by: Katja Crook MD (03/24/2021 3:31 PM) [facility]
--- NOTE | 2021-03-24 15:36 | PHYS DOC ---
Past History Past Medical History: A-Fib, CVA, Diabetes, Heart Disease, Hypertension, Pancreatitis, Stroke Additional Past Medical Histor: atrial fibrillation, chronic kidney disease, gout Past Surgical History: Other Additional Past Surgical Histo: hernia repair Smoking: Quit Greater Than 1 Year Alcohol Use: Sober Drug Use: None General Adult EDM: Chief Complaint: TESTICULAR PAIN OR INJURY HPI: HPI: 61-year-old male presents with 1 week history of testicular swelling. The patient was admitted to the hospital a little over a week ago for lower extremity swelling and cellulitis. He was given IV antibiotics in the hospital and discharged to a rehab facility for continued IV antibiotics. He is still getting these treatments. They sent him here today because his testicles are significantly swollen and is 3 times normal size. They are concerned about torsion. Patient's never had swelling of his testicles before. He denies any trauma. Review of Systems: Review of Systems: Constitutional: Denies fever or chills Eyes: Denies change in visual acuity HENT: Denies nasal congestion or sore throat Respiratory: Denies cough or shortness of breath Cardiovascular: Denies chest pain or edema GI: Denies abdominal pain, nausea, vomiting, bloody stools or diarrhea : Swollen testicles Musculoskeletal: Denies back pain or joint pain Integument: Denies rash Neurologic: Denies headache, focal weakness or sensory changes Endocrine: Denies polyuria or polydipsia Lymphatic: Denies swollen glands Psychiatric: Denies depression or anxiety Allergies: Allergies: Allergies Coded Allergies Type Severity Reaction Last Updated Verified No Known Drug Allergies 05/17/16 No Physical Exam: PE: Constitutional: Well developed, well nourished, no acute distress, non-toxic appearance. [] HENT: Normocephalic, atraumatic, bilateral external ears normal, oropharynx moist, no oral exudates, nose normal. [] Eyes: PERRLA, EOMI, conjunctiva normal, no discharge. [] Neck: Normal range of motion, no tenderness, supple, no stridor. [] Cardiovascular:Heart rate regular rhythm, no murmur [] Lungs & Thorax: Bilateral breath sounds clear to auscultation [] Abdomen: Bowel sounds normal, soft, no tenderness, no masses, no pulsatile masses. [] Skin: Warm, dry, no erythema, no rash. [] Back: No tenderness, no CVA tenderness. [] Extremities: No tenderness, no cyanosis, no clubbing, ROM intact, no edema. [] Neurologic: Alert and oriented X 3, normal motor function, normal sensory function, no focal deficits noted. [] Psychologic: Affect normal, judgement normal, mood normal. : Circumcised, very enlarged scrotum without erythema, warmth or obvious lesions. [] Current Patient Data: Vital Signs: Vital Signs Date Time Temp Pulse Resp B/P (MAP) Pulse Ox O2 Delivery O2 Flow Rate FiO2 03/24/21 15:27 98.1 80 18 139/74 98 Room Air EKG: EKG: [] Radiology/Procedures: Radiology/Procedures: [] Impressions: US TESTICULAR: 03/24/2021 2:51 PM INDICATION: 61 years old Male. Swelling with possible torsion. COMPARISON: None. FINDINGS: Right: Testicle: Normal in echotexture without focal lesion. Extensive scrotal edema. Size: 5.5 x 3.2 x 3.6 cm. Flow: Normal color Doppler flow pattern. Epididymis: Normal in size and echotexture without focal lesion. Hydrocele: Moderate Varicocele: None. Left: Testicle: Normal in echotexture without focal lesion. Extensive scrotal edema. Size: 2.9 x 2.8 x 2.1 cm. Flow: Normal color Doppler flow pattern. Epididymis: Normal in size and echotexture without focal lesion. Hydrocele: Moderate Varicocele: None. IMPRESSION: Extensive scrotal edema with perfusion noted to the testicles at the time of imaging. There is asymmetry in the size of the testicles with right greater than left, nonspecific. No definite intratesticular mass to account for this difference. Electronically signed by: hCris Crook MD (03/24/2021 3:31 PM) [facility] DICTATED AND SIGNED BY: CHRIS CROOK MD DATE: 03/24/21 1529 CC: ROSA HERNANDEZ DO; PCP,NO ~MTH0 0 Heart Score: C/O Chest Pain: N/A Risk Factors: Risk Factors: DM, Current or recent (<one month) smoker, HTN, HLP, family history of CAD, obesity. Risk Scores: Score 0 - 3: 2.5% MACE over next 6 weeks - Discharge Home Score 4 - 6: 20.3% MACE over next 6 weeks - Admit for Clinical Observation Score 7 - 10: 72.7% MACE over next 6 weeks - Early Invasive Strategies Course & Med Decision Making: Course & Med Decision Making Pertinent Labs and Imaging studies reviewed. (See chart for details) The patient's urinalysis is negative for infection. His testicular ultrasound is negative for torsion. The ultrasound is also negative for evidence of infection. See official read for more details. Since the patient is already on antibiotics, I do not think more antibiotics would be warranted. I have stressed to the patient that the medical [facility] needs to make him an appointment with a urologist. The patient [place] at the [place]. We have called the rehab facility and expressed her desire for the patient to be seen by urology. He does not currently meet admission criteria for this problem. He is stable for discharge at this time. [] Ronny Disclaimer: Ronny Disclaimer: This electronic medical record was generated, in whole or in part, using a voice recognition dictation system. Departure Departure: Impression: Primary Impression: Swelling of scrotum Disposition: HOME / SELF CARE / HOMELESS Condition: STABLE Referrals: PCPADRIAN (PCP) Patient Instructions: Scrotal Swelling Additional Instructions: The patient needs to have an appointment made with urology as soon as possible for follow-up of his scrotal swelling. ROSA HERNANDEZ DO Mar 24, 2021 15:36
[2021-03-24 16:55] LABS: CLARITY,URINE CLEAR; COLOR,URINE YELLOW
[2021-03-24 16:56] LABS: BILIRUBIN,URINE NEG (NEG); GLUCOSE,URINE NEG (NEG); NITRITE,URINE NEG (NEG); UROBILINOGEN,URINE 0.2 mg/dL (0.2 mg/dL)
[2021-03-24 16:59] LABS: RBC,URINE 20-40 /HPF (0-2)
[2021-03-24 17:00] LABS: BACTERIA,URINE FEW /HPF (0-FEW); SQUAMOUS EPITHELIAL CELL,UR OCC /LPF
[2021-03-24 17:01] LABS: HYALINE CASTS, URINE OCC /HPF
[2021-03-24 17:17] VITALS: BP 128/67
== END 2021-03-24 18:00 | disposition home or self-care (01) ==
LOC: ER 14:21
DX: N50.89 Other specified disorders of the male genital organs (principal); I48.91 Unspecified atrial fibrillation; E11.9 Type 2 diabetes mellitus without complications; I11.9 Hypertensive heart disease without heart failure; Z86.73 Personal history of transient ischemic attack (TIA), and cerebral infarction without residual deficits; Z87.891 Personal history of nicotine dependence
CPT/HCPCS: 76870; 81001; 87086; 99284-25